=== PATIENT | male | born 1990 | race Hispanic/Latino ===

== ENCOUNTER 2025-02-05 18:48 | Emergency (ER) | payer SELFPAY ==
[2025-02-05 19:36] LABS: Hematocrit 41.1 % (42.0-52.0); Hemoglobin 13.9 g/dL (14.0-18.0); Mean Corpuscular Hemoglobin 29.4 pg (27.0-31.0); Mean Corpuscular Volume 87.1 fL (78.0-98.0); Platelet Count 217 10x3/uL (130-400); Red Blood Cell (RBC) Count 4.72 mill/uL (4.70-6.10); White Blood Cell (WBC) Count 7.61 10x3/uL (4.8-10.8)
[2025-02-05 19:48] LABS: Bacteria/HPF None Seen HPF (None Seen); CAUTI Indications for Culture Pelvic or flank pain; Glucose, Urine (Dipstick) Normal (Negative); Leukocyte Negative Leu/uL (Negative); Protein, Urine (Dipstick) 50 mg/dL (Neg-Trace); RBC/HPF 0-3 HPF (0-3); Specific Gravity, Urine 1.031 (1.002-1.036); WBC/HPF 0-3 HPF (0-3)
[2025-02-05 19:49] LABS: ALT (SGPT) 52 U/L (Less than 45); AST (SGOT) 33 U/L (11-34); Albumin 4.4 g/dL (3.1-4.5); Alkaline Phosphatase 88 U/L (40-110); Anion Gap 16 mmol/L (10-20); BUN (Urea Nitrogen) 19 mg/dL (8.9-20.6); Bilirubin, Total 1.2 mg/dL (0.3-1.2); Calc. Creatinine Clearance 0 mL/min (70-130); Calcium 8.5 mg/dL (7.8-10.44); Carbon Dioxide 18 mmol/L (22-29); Chloride 104 mmol/L (98-107); Globulin 3.1 g/dL (2.4-3.5); Glucose 130 mg/dL (70-105); Potassium 3.9 mmol/L (3.5-5.1); Sodium 134 mmol/L (136-145)
[2025-02-05 19:50] LABS: Acetaminophen 24 mcg/mL (Less than 10); Salicylate Less than 8.0 mg/dL (Less than 8.0)
[2025-02-05 19:53] LABS: Urine Culture Reflex No No
[2025-02-05 19:59] LABS: Platelet Adequacy Comment Platelets Normal; Polychromasia SLIGHT = 2-3 cells HPF (0-2)
[2025-02-05 20:02] LABS: Cocaine Metabolite Screen Negative (Negative); THC/Cannabinoid Screen Negative (Negative); Tricyclic Screen Negative (Negative)
[2025-02-05 20:06] LABS: Actual Bicarbonate (HCO3v) 20.2 mEq/L (22-28); Analyzer IN Cardio ER; Base Excess -2.2 mEq/L (-2.0 to +3.0); Calcium, Ionized (venous) 1.03 mmol/L (1.16-1.32); Chloride (VBG) 102 mmol/L (98-106); Hematocrit-VBG 40 % (42.0-52.0); Hemoglobin (Hb) 13.6 g/dL (13.2-17.3); Potassium (VBG) 3.28 mmol/L (3.70-5.30); Sodium 134 mmol/L (133-146)
== END 2025-02-06 00:12 | disposition home or self-care (01) ==
LOC: ERS 18:48
DX: R50.9 Fever, unspecified (principal); E87.20 Acidosis, unspecified; R00.0 Tachycardia, unspecified; Z75.8 Other problems related to medical facilities and other health care
CPT/HCPCS: 36415; 71045; 80053; 80306; 80307; 81001; 82805; 83605; 83880; 84484; 85025; 87040; 87077; 87086; 87149; 87428; 93005; 94760; 96360; 96361

== ENCOUNTER 2025-02-06 09:27 | Emergency (ER) | payer SELFPAY ==
[2025-02-06] MEDS ORDERED: Ketorolac Tromethamine 30 MG (1 mL) VIAL ONE (10:40)
[2025-02-06] MEDS ORDERED: Acetaminophen 500 MG TAB ONE (10:40)
[2025-02-06 10:59] LABS: #Basophils 0.05 10x3/uL (0.0-0.2); #Eosinophils Less than 0.03 10x3/uL (0.0-0.7); #Monocytes 0.07 10x3/uL (0.11-0.59); #Neutrophils 6.53 10x3/uL (1.40-6.50); %Basophils 0.7 % (0.0-1.0); %Eosinophils 0.1 % (0.0-10.0); %Lymphocytes 7.2 % (21.0-51.0); %Monocytes 1.0 % (0.0-10.0); %Neutrophils 90.6 % (42.0-75.0); Hematocrit 38.4 % (42.0-52.0); Hemoglobin 13.0 g/dL (14.0-18.0); Mean Corpuscular Hemoglobin 29.1 pg (27.0-31.0); Mean Corpuscular Volume 86.1 fL (78.0-98.0); Platelet Count 183 10x3/uL (130-400); Red Blood Cell (RBC) Count 4.46 mill/uL (4.70-6.10); White Blood Cell (WBC) Count 7.21 10x3/uL (4.8-10.8)
[2025-02-06 11:16] LABS: ALT (SGPT) 86 U/L (Less than 45); AST (SGOT) 62 U/L (11-34); Albumin 3.9 g/dL (3.1-4.5); Alkaline Phosphatase 81 U/L (40-110); Anion Gap 15 mmol/L (10-20); BUN (Urea Nitrogen) 14 mg/dL (8.9-20.6); Bilirubin, Total 1.8 mg/dL (0.3-1.2); Calc. Creatinine Clearance 0 mL/min (70-130); Calcium 8.3 mg/dL (7.8-10.44); Carbon Dioxide 18 mmol/L (22-29); Chloride 105 mmol/L (98-107); Globulin 2.8 g/dL (2.4-3.5); Glucose 105 mg/dL (70-105); Potassium 3.2 mmol/L (3.5-5.1); Sodium 135 mmol/L (136-145)
== END 2025-02-06 12:13 | disposition home or self-care (01) ==
LOC: ERS 09:27
DX: B34.9 Viral infection, unspecified (principal); K60.2 Anal fissure, unspecified; Z75.8 Other problems related to medical facilities and other health care
CPT/HCPCS: 36415; 80053; 85025; 96374; J1885